=== PATIENT | male | born 1970 | race Caucasian/White ===

== ENCOUNTER → 2017-11-20 | Emergency (ER) | payer OTHER ==
[~2017-11-20] VITALS: Ht 180.3 cm; Wt 117.9 kg
[~2017-11-20] MED LIST: FIORICET 50-321 EACH PO; KETO10TA2 PO; LEVSIN/SL0.125 MG SL; NO TOMA MED.; NORFLEX100MG PO; ORPH100T PO; ZOFRAN8 MG PO
== END | disposition home or self-care (01) ==
LOC: ER 19:56
DX: K52.89 Other specified noninfective gastroenteritis and colitis (principal)

== ENCOUNTER 2018-01-16 19:41 | Emergency (ER) | payer OTHER ==
[~2018-01-16] VITALS: Ht 180.3 cm; Wt 117.9 kg
== END 2018-01-16 23:57 | disposition home or self-care (01) ==
LOC: ER 19:41
DX: R07.89 Other chest pain (principal); I10 Essential (primary) hypertension